=== PATIENT | male | born 1950 ===

== ENCOUNTER 2019-10-16 20:00 | Outpatient (CLI) | payer MEDICARE, OTHER, SELFPAY | END 2019-10-16 20:01 | disposition home or self-care (01) | LOC: SLEEP 10-17 10:18 | PROVIDERS: Family Provider Family Medicine; Visit Provider Nurse Practitioner Family | DX: G47.33 Obstructive sleep apnea (adult) (pediatric) (principal) | CPT/HCPCS: 95810 ==

== ENCOUNTER 2019-11-07 20:00 | Outpatient (CLI) | payer MEDICARE, OTHER, SELFPAY | END 2019-11-07 20:01 | disposition home or self-care (01) | LOC: SLEEP 11-08 09:16 | PROVIDERS: Family Provider Family Medicine; Visit Provider Nurse Practitioner Family | DX: G47.33 Obstructive sleep apnea (adult) (pediatric) (principal) | CPT/HCPCS: 95811 ==

== ENCOUNTER → 2020-07-02 11:49 | Outpatient (BNVA) | payer MEDICARE, OTHER, SELFPAY | PROVIDERS: Family Provider Family Medicine; Visit Provider Specialist | DX: G25.0 Essential tremor (principal); G31.84 Mild cognitive impairment of uncertain or unknown etiology; R56.9 Unspecified convulsions; J44.9 Chronic obstructive pulmonary disease, unspecified; Z87.891 Personal history of nicotine dependence | CPT/HCPCS: 96116; 99215 ==

== ENCOUNTER 2020-07-11 11:56 | Outpatient (CLI) | payer MEDICARE, OTHER, SELFPAY ==
[2020-07-11 12:25] LABS: Basophils % 0.6 %; Eosinophils # 0.1 10^3/uL (0.0-0.8); Hematocrit 43.4 % (42.0-52.0); Hemoglobin 14.4 g/dL (11.7-16.6); Lymphocytes # 1.2 10^3/uL (0.8-4.8); Lymphocytes % 25.3 %; Mean Corpuscular HGB Conc 33.2 g/dL (30.0-36.0); Mean Corpuscular Hemoglobin 32.3 pg (28.0-34.0); Mean Corpuscular Volume 97.3 fL (80-94); Monocytes # 0.6 10^3/uL (0.2-0.9); Monocytes % 12.7 %; Neutrophils % 59.2 %; Nucleated Red Blood Cells % 0 %; Platelet Count 191 10^3/cmm (130-400); Red Blood Count 4.46 10^6/uL (4.1-5.3); Red Cell Distribution Width 13.3 % (12.1-15.1); White Blood Count 4.9 10^3/uL (4.0-10.0)
[2020-07-14 14:49] LABS: Alternaria Alternata (M6) Ige <0.10 kU/L; Alternaria Class 0; Bermuda Class 0; Bermuda Grass (G2) Ige <0.10 kU/L; Cat Dander (E1) Ige <0.10 kU/L; Cat Dander Class 0; Common Ragweed (Short) (W1) Ig <0.10 kU/L; D. Farinae Class 2; Dermatophagoides Class 2; Dermatophagoides Pteronyssinus 1.04 kU/L; Dog Dander (E5) Ige <0.10 kU/L; Dog Dander Class 0; Elm (T8) Ige <0.10 kU/L; Elm Class 0; English Plantain (W9) Ige <0.10 kU/L; English Plantain Class 0; House Dust (Greer) (H1) Ige 0.19 kU/L; House Dust (Hollister- Stier) 0.12 kU/L; House Dust Class 0/1; Immunoglobulin E 17 kU/L (<OR=114); Immunoglobulin E 18 kU/L (<OR=114); Johnson Grass (G10) Ige <0.10 kU/L; Johnson Grass Cl 0; June Grass Class 0; June Grass(Kentucky Blue) (G8) <0.10 kU/L; Lamb'S Quarters (Goose Foot) <0.10 kU/L; Lamb'S Quarters Class 0; Maple (Box Elder) (T1) Ige <0.10 kU/L; Maple Class 0; Meadow Fescue (G4) Ige <0.10 kU/L; Meadow Fescue Class 0; Mucor Racemosus Class 0; Oak (T7) Ige <0.10 kU/L; Oak Class 0; Orchard Grass (Cocksfoot) (G3) <0.10 kU/L; Penicillium Class 0; Penicillium Notatum (M1) Ige <0.10 kU/L; Perennial Rye Grass (G5) Ige <0.10 kU/L; Perennial Rye Grass Class 0; Ragweeed Class 0; Rough Marsh Elder (W16) Ige <0.10 kU/L; Rough Marsh Elder Class 0; Sweet Vernal Class 0; Sweet Vernal Grass (G1) Ige <0.10 kU/L; Timothy Grass (G6) Ige <0.10 kU/L; Timothy Grass Class 0
[2020-07-15 16:43] LABS: Aspergillus Fumigatus, Igg Ab, 14.7 mg/L (<=102)
== END 2020-07-11 11:57 | disposition home or self-care (01) ==
PROVIDERS: PCP Nurse Practitioner Family; Visit Provider Internal Medicine Critical Care Medicine
DX: J45.909 Unspecified asthma, uncomplicated (principal); R06.02 Shortness of breath
CPT/HCPCS: 36415; 82785; 85025; 86003

== ENCOUNTER → 2020-07-26 14:18 | Outpatient (BNVA) | payer MEDICARE, OTHER, SELFPAY | PROVIDERS: PCP Nurse Practitioner Family; Visit Provider Nurse Practitioner | DX: Z20.822 Contact with and (suspected) exposure to COVID-19 (principal) | CPT/HCPCS: 87635 ==

== ENCOUNTER 2020-07-31 08:04 | Outpatient (CLI) | payer MEDICARE, OTHER, SELFPAY ==
--- NOTE | 2020-07-31 11:02 | PFTS_ITS ---
Date of Study:07/31/20 Date of Dictation: 08/01/2020 MECHANICS: Prebronchodilator Forced vital capacity (FVC) is normal. Prebronchodilator Forced expiratory volume in one second (FEV1) is moderately reduced 57%. FEV1/FVC is reduced. Post bronchodilator study not performed. FLOW VOLUME LOOP: Scooping of expiratory limb suggestive of airway obstruction . LUNG VOLUMES: Total lung capacity (TLC) is Normal . Residual volume (RV) is moderately increased. RV/TLC increased suggestive of hyperinflation DIFFUSING CAPACITY FOR CARBON MONOXIDE: Normal . INTERPRETATION: The pulmonary function tests are consistent with moderate obstructive ventilatory defect with air trapping and hyperinflation noted on lung volumes. Normal gas transfer. Correlate clinically. MTDD
== END 2020-07-31 08:05 | disposition home or self-care (01) ==
LOC: RT 08:12
PROVIDERS: PCP Nurse Practitioner Family; Visit Provider Internal Medicine Critical Care Medicine
DX: J44.9 Chronic obstructive pulmonary disease, unspecified (principal)
CPT/HCPCS: 94010; 94726; 94729

== ENCOUNTER 2020-08-06 12:07 | Outpatient (CLI) | payer MEDICARE, OTHER, SELFPAY ==
--- NOTE | 2020-08-06 12:21 | XR_ITS ---
WS: [id number] Left knee, AP and lateral views, 08/06/2020 Clinical Data: PAIN IN LEFT KNEE Comparison: Left knee, 05/12/2017. Findings: There is severe osteoarthritic narrowing of the medial joint compartment left knee. There are osteoph ytes of the medial tibial plateau and lateral femoral condyle. The posterior patella shows spurring. No fractures or dislocations are seen. The soft tissues are normal. XR/XR knee LT 1-2V [id number] Impression: Severe osteoarthritic change of the left knee.
== END 2020-08-06 12:08 | disposition home or self-care (01) ==
PROVIDERS: PCP Nurse Practitioner Family; Visit Provider Nurse Practitioner Family
DX: M25.562 Pain in left knee (principal)
CPT/HCPCS: 73560

== ENCOUNTER → 2020-09-11 10:15 | Outpatient (BNVA) | payer MEDICARE, OTHER, SELFPAY | PROVIDERS: PCP Nurse Practitioner Family; Referring Provider Family Medicine; Visit Provider Specialist | DX: M17.0 Bilateral primary osteoarthritis of knee (principal); M25.512 Pain in left shoulder | CPT/HCPCS: 73030; 73560; 73565 ==